=== PATIENT | female | born 1995 | race Caucasian/White ===

== ENCOUNTER 2023-06-03 17:18 | Outpatient (REF) | payer OTHER, SELFPAY | END 2023-06-03 17:19 | disposition home or self-care (01) | LOC: HO.LAB 17:18 | PROVIDERS: PCP Internal Medicine; Visit Provider Internal Medicine | DX: Z00.00 Encounter for general adult medical examination without abnormal findings (principal); E66.01 Morbid (severe) obesity due to excess calories; E78.2 Mixed hyperlipidemia | CPT/HCPCS: 36415; 80053; 80061; 84443; 85025 ==

== ENCOUNTER 2024-04-06 09:54 | Outpatient (REF) | payer OTHER, SELFPAY ==
[2024-04-07 12:34] LABS: Rubeola IgG (Measles) >300.00 AU/mL
[2024-04-07 13:04] LABS: Rubella IgG Antibody 3.12 Index
[2024-04-09 02:13] LABS: TS Negative Control Passed; TS Panel A 0; TS Panel B 0; TS Positive Control Passed; TSpotTB Negative (Negative)
== END 2024-04-06 09:55 | disposition home or self-care (01) ==
LOC: HO.LAB 09:54
PROVIDERS: PCP Internal Medicine; Visit Provider Internal Medicine
DX: E66.01 Morbid (severe) obesity due to excess calories (principal); E78.2 Mixed hyperlipidemia; Z11.1 Encounter for screening for respiratory tuberculosis; Z28.39 Other underimmunization status
CPT/HCPCS: 36415; 86481; 86735; 86762; 86765; 86787

== ENCOUNTER 2025-01-04 10:21 | Outpatient (REF) | payer OTHER, SELFPAY ==
[2025-01-04 10:55] LABS: Estimated Average Glucose 105 mg/dL; Hemoglobin A1C 114.4603 umol/L; Hemoglobin A1c % 5.3 % (<6.0); Total Hemoglobin (HGBA1C) 3364.6309 umol/L
--- OUTSIDE RECORDS SUMMARY | 2025-01-04 11:28 | XMS_ITS | Encounter Summary ---
Author Organization [facility] Address [address] [place] [address] Phone Care Team Providers Care Software Engineering Specialist Name Role Phone Carole Carpio MD Primary Care Provider [phone] Encounter Details Date Type Department Care Team ([facility] st Contact Info) Description 07/31/2012 Documentation [facility] [place] Family Medicine [address] [place] [address] Family Medicine, Physician [address] [place], [place] [phone] Social History Tobacco Use Types Packs/Day Years Used Date Smoking Tobacco: Never Assessed Comments Unknown Sex and Gender Information Value Date Recorded Sex Assigned at Not on file Legal Sex Female 4:35 PM EDT Gender Identity Not on file Sexual Orientation Not on file documented as of this encounter Plan of Treatment Not on file documented as of this encounter Visit Diagnoses Not on filedocumented in this encounter Care Teams Software Engineering Specialist Relationship Specialty Start Date End Date Carole Carpio MD [address] [place] [place] [address] PCP - General 04/04/17 12/04/22 documented as of this encounter
--- OUTSIDE RECORDS SUMMARY | 2025-01-04 11:28 | XMS_ITS | Encounter Summary ---
Author Organization [facility] Address [address] [place] [address] Phone Care Team Providers Care Service Worker Name Role Phone Carole Carpio MD Primary Care Provider [phone] Encounter Details Date Type Department Care Team (Late st Contact Info) Description 10/03/2011 Documentation [facility] [place] Family Medicine [address] [place] [address] Family Medicine, Physician [address] [place], [place] [phone] Social History Tobacco Use Types Packs/Day Years [...] on filedocumented in this encounter Care Teams Service Worker Relationship Specialty Start Date End Date Carole Carpio MD [address] [place] [place] [address] PCP - General 04/04/17 12/04/22 documented as of this encounter
--- OUTSIDE RECORDS SUMMARY | 2025-01-04 11:28 | XMS_ITS ---
Author Organization [facility] Address [address] [place] [phone] Care Team Providers Care Clinic Office Assistant Name Role Phone WILLIAN PACK Unavailable [phone] REASON FOR VISIT Menses concerns Social History Sex Assigned At : Social History Observation Description Sex Assigned At Female Encounters Encounter Location Date Provider Diagnosis [address] [phone] WILLIAN PAKC Plan Of Treatment No Information Progress Notes * Skylar LIZDOB:1995 ( 29 yo F)Acc No.[id number]:11/05/2024 Progress Notes Patient:?Skylar LIZ Provider:YA PACK :1995???Age:29 Y???Sex:Female D ate:11/05/2024 Address:[address] [place], [place] [id number] Subjective: * Chief Complaints: * ???1. Menses concerns. * Medical History:? Objective: * Vitals:? Assessment: Plan: * Treatment: * Billing Information: * Visit Code:? * Procedure Codes:? * Electronic signature of DANIELLA PACK CNM on 01/04/2025 at 11:28 AM EDT Sign off status: Pending * Provider:YA PACK Date:?11/05/2024 Generated for Megan quezada/[place]/eTransmitting on:?01/04/2025 11:28 AM EDT
--- OUTSIDE RECORDS SUMMARY | 2025-01-04 11:28 | XMS_ITS | Clinical Summary ---
Author Organization [facility] Address [address] [place] [address] Phone Care Team Providers Care Certified Wellness Program Coordinator Name Role Phone Unavailable Primary Care Provider Unavailabl e Immunizations Immunization Administration Dates Next Due DTP 04/24/1998, 5,1993, 993,1993 H1N1 07/10/2009 HPV, Quadrivalent 12/19/2009,09/12/2009,07/10/20 09 Hep B, ped/adol 1993,1993,1993 Hib (PRP-T) 06/24/1994, 4,1993, 993 IPV 04/24/1998, 4,1993, 993 Influenza Split 10/31/2010 MMR 04/24/1997,06/24/1994 Meningococcal Conj (Menactra) MCV4P 07/10/2009 Tdap 07/10/2009 Varicella 07/10/2009,01/08/1999 Social History Tobacco Use Types Packs/Day Years Used Date Smoking Tobacco: Never Assessed Comments Unknown Sex and Gender Information Value Date Recorded Sex Assigned at Not on file Legal Sex Female 4:35 PM EDT Gender Identity Not on file Sexual Orientation Not on file Last Filed Vital Signs Vital Sign Reading Time Taken Comments Blood Pressure 108/70 10/31/2010 12:00 AM EST Pulse - - Temperature - - Respiratory Rate - - Oxygen Saturation - - Inhaled Oxygen Concentration - - Weight 7.711 kg (17 lb) 01/31/2011 12:00 AM EDT Height 157.5 cm (5' 2 ) 10/31/2010 12:00 AM EST Body Mass Index - - Plan of Treatment Health Maintenance Due Date Last Done Comments DTaP,Tdap,and Td Vaccines (7 - Td or Tdap) 07/10/2019 07/10/2009, 04/24/1998, 12/22/1994, Additional history exists Influenza Vaccines (#1) 2024 10/31/2010 COVID-19 Vaccine ( season) 2024 Hepatitis B Vaccines Completed 1995, 1995, 1993 HIB Vaccines Completed 06/24/1994, 10/25, 1993, Additional history exists MMR Vaccines Completed 04/24/1997, 06/24/1994 IPV Vaccines Completed 04/24/1998, 10/25, 1993, Additional history exists Meningococcal Vaccine Completed 07/10/2009 Varicella Vaccines Completed 07/10/2009, 01/08/1999 HPV Vaccines Completed 12/19/2009, 08/25, 07/10/2009 Hepatitis A Vaccines Aged Out No long er eligible based on patient's age to complete this topic Men B Vaccine Aged Out No longer elig ible based on patient's age to complete this topic Pneumococcal Vaccine Aged Out No long er eligible based on patient's age to complete this topic Procedures * Due to [place] [employer] law, this organization might not be sharing sensitive test results. Procedure Name Priority Date/Time Associated Diagnosis Comments CHLAMYDIA AND GONORRHEA, AMPLIFIED Routine 02/01/2011 1:45 PM EDT from Last 3 Months or Most Recently Relevant to Health Maintenance Results * Due to [place] [employer] law, this organization might not be sharing sensitive test results. * Chlamydia and Gonorrhoea, Amplified (02/01/2011 1:45 PM EDT) Pathologist [facility] URINE GC AMP PROBE NEGATIVE [facility] Comment: NO NEISSERIA GONORRHOEAE RNA DETECTED IN THIS PATIENT'S SAMPLE. ? (REFERENCE RANGE/NORMAL VALUE: NOT DETECTED) ? NOTE: THIS TEST USES LABORATORY CLERK MEDIATED AMPLIFICATION METHOD TO DETECT rRNA FROM C.TRACHOMATIS AND N.GONORRHOEAE. A NEGATIVE RESULT DOES NOT PRECLUDE INFECTION WITH C.TRACHOMATIS OR N.GONORRHOEAE BECAUSE RESULTS ARE DEPENDENT ON ADEQUATE SPECIMEN COLLECTION, ABSENCE OF INHIBITORS, AND SUFFICIENT rRNA TO BE DETECTED. THE APTIMA COMBO2 ASSAY IS NOT INTENDED FOR THE EVALUATION OF SUSPECTED SEXUAL ABUSE OR FOR OTHER MEDICO LEGAL INDICATIONS. IS TRUE FOR ALL NON CULTURE METHODS, A POSITIVE SPECIMEN OBTAINED FROM A PATIENT AFTER THERAPEUTIC TREATMENT CANNOT BE INTERPRETED INDICATING THE PRESENCE OF VIABLE C.TRACHOMATIS OR N.GONORRHOEAE. THERAPEUTIC FAILURE OR SUCCESS CANNOT BE DETERMINED WITH THE APTIMA COMBO2 ASSAY SINCE NUCLEIC ACID MAY PERSIST FOLLOWING APPROPRIATE ANTIMICROBIAL THERAPY. A NEGATIVE URINE RESULT FOR A PATIENT WHO IS CLINICALLY SUSPECTED OF HAVING A CHLAMYDIAL OR GONOCOCCAL INFECTION DOES NOT RULE OUT THE PRESENCE OF C.TRACHOMATIS OR N.GONORRHOEAE IN THE UROGENITAL TRACT. TESTING OF AN ENDOCERVICAL(FEMALE) OR URETHRAL(MALE) SPECIMEN IS RECOMMENDED IF THERE IS HIGH CLINICAL SUSPICION OF INFECTION. PRESERVCYT LIQUID PAP AND URINE SAMPLING ARE NOT DESIGNED TO REPLACE CERVICAL EXAMS AND ENDOCERVICAL SAMPLES FOR DIAGNOSIS OF FEMALE UROGENITAL INFECTIONS. PATIENTS MAY HAVE CERVICITIS, URETHRITIS, URINARY TRACT INFECTIONS, OR VAGINAL INFECTIONS DUE TO OTHER CAUSES OR CONCURRENT INFECTIONS WITH OTHER AGENTS. URINE CHLAMYDIA AMP PROBE NEGATIVE [facility] Comment: NO CHLAMYDIA TRACHOMATIS RNA DETECTED IN THIS PATIENT'S SAMPLE. ? (REFERENCE RANGE/NORMAL VALUE: NOT DETECTED) 02/01/2011 1:45 PM EDT Narrative [facility] - 02/01/2011 1:45 PM EDT URINE CHLAMYDIA GC AMP PROBE us [facility] N[facility] NP LAB MICROBIOLOGY - GENERA L ORDERABLES Final Result [facility] [address] [place] [address], [place] from Last 3 Months or Most Recently Relevant to Health Maintenance
--- OUTSIDE RECORDS SUMMARY | 2025-01-04 11:28 | XMS_ITS | Patient Health Record ---
Author Organization [facility] Address [address] [place] [phone] Care Team Providers Care Office Equipment Technician Name Role Phone MARGIE VILLALOBOS Unavailable [phone] WILLIAN PACK Unavailable [phone] Millie Washington Unavailable [phone] Allergies No Known Allergies Results Component Value Reference Range Notes APTIMA COMBO 2 CT/NG, Urine Reviewed date:01/22/2024 03:26:30 PM Interpretation:neg/negati Performing Lab:[facility], [address] [facility], [place], [address] Gildardo Lyon DO Notes/Report: GONORRHEA, AMPLIFIED NEGATIVE NEGATIVE CHLAMYDIA, AMPLIFIED NEGATIVE NEGATIVE DNA Test Results SEX: F : 1995 AGE: 28 [id number] CLINIC ID: [id number] SS: PHYSICIAN: MILLIE WASHINGTON [facility] COLLECTED BY: [id number] Specimen Source: Urine Specimen Type: Urine, Iveth PCR Medium Neisseria gonorrhoeae: NEGATIVE Normal Value: Negative Chlamydia trachomatis: NEGATIVE Normal Value: Negative Reason For Referral No Information Medications Medication SIG (Take, Route, Frequency, Duration) Notes Start Date End Date Status NuvaRing 0.12-0.015 MG/24HR 1 ring Vaginal _insert for three weeks, then ring free for 1 week for 84 days 07/04/2023 Active Social History Sex Assigned At : Social History Observation Description Sex Assigned At Female Problems Problem Type SNOMED Code ICD Code Onset Dates Problem Status W/U Status Risk Notes Problem Dyspareunia (02163417) Unspecified dyspareunia (N94.10) Active confirmed Problem Dysmenorrhea (650164941) Dysmenorrhea (N94.6) Active confirmed Vital Signs Blood pressure diastolic 78 mm Hg 12/03/2024 Height 62 in 12/03/2024 Blood pressure systolic 122 mm Hg 12/03/2024 Weight 216.9 lbs 12/03/2024 BMI 39.67 kg/m2 12/03/2024 Encounters Encounter Location Date Provider Diagnosis [address] [phone] 01/12/2024 Millie Washington Encounter for screening for infections with a predominantly sexual mode of transmission Z11.3 ; Counseling, unspecified Z71.9 and Encounter for surveillance of vaginal ring hormonal contraceptive device Z30.[address] [id number] 12/03/2024 WILLIAN PACK Encounter for surveillance of contraceptives, unspecified Z30.40 Assessments Encounter Date Diagnosis (ICD Code) Assessment Notes Treatment Notes Treatment Clinical Notes Section Notes 01/12/2024 Encounter for screening for infections with a predominantly sexual mode of transmission (ICD-10 - Z11.3) Reviewed STI screening recommendations and available testing through [facility]. Testing ordered as noted per patient risks and preference. Encouraged safe sex practices. Advised to call for evaluation if any symptoms arise. Reviewed method of communicating results to patient. Spent 20 minutes doing the following: Chart Prep Obtaining/rev iewing history Counseling/Co ordination of Care Documenting the visit Educating the patient Ordering medication/te st/procedures 12/03/2024 Encounter for surveillance of contraceptives, unspecified (ICD-10 - Z30.40) Ok and normal to have amenorrhea with NR as long as urine PT in negative. No CI's to CHCs or to continue with the NR. Reminded of ACHES. Year supply sent. Discussed tubal ligation. Encouraged to call [facility] office to schedule a consult visit. Spent 18 minutes doing the following: Chart Prep Obtaining/rev iewing history Performing medically necessary exam Counseling/Co ordination of Care Documenting the visit Educating the patient Ordering medication/te st/procedures Established Patient: [id number] 10 Minutes 01/12/2024 Encounter for surveillance of vaginal ring hormonal contraceptive device (ICD-10 - Z30.44) Annual 3 mos ago. Updated medical hx, vitals. No contraindications to continuation of nuvaring. Rx continued with refills through 09/2024. Spent 20 minutes doing the following: Chart Prep Obtaining/rev iewing history Counseling/Co ordination of Care Documenting the visit Educating the patient Ordering medication/te st/procedures 01/12/2024 Counseling, unspecified (ICD-10 - Z71.9) Spent 20 minutes doing the following: Chart Prep Obtaining/rev iewing history Counseling/Co ordination of Care Documenting the visit Educating the patient Ordering medication/te st/procedures Plan Of Treatment No Information Insurance Providers Payer Name Payer Address Payer Phone Subscriber Number Group Number Insured Name Patient Relationship to Insured Coverage Start Date Coverage End Date [place] ATT CLAIMS [address] [place] [id number] Skylar Liz Self - patient is the insured Medications Administered Medication Instructions Date of Administration Dosage Notes Rocephin / Ceftriaxone 10/15/2023 500 mg Medical (General) History Medical History History ICD Code GC 10/18 Abnormal Pap smear Surgical History Surgery Date(Month/Year) Hospitalization History Reason Date(Month/Year) childbirth
--- OUTSIDE RECORDS SUMMARY | 2025-01-04 11:29 | XMS_ITS | Clinical Summary ---
Author Organization [facility] Address [address] [place] [address] Care Team Providers Care Hiv Prevention Specialist Name Role Phone Sara Parra MD Primary Care Provider Surgical History Surgery Date Site/Laterality Comments OTHER SURGICAL HISTORY PROCEDURE: DENIES PREVIOUS SURGERY Medical History Medical History Date Comments Obese 02/18/2019 DX:Obese; COMMEN T: bmi 40.2 Family History Medical History Relation Name Comments No Known Problems Father No Known Problems Maternal Grandfather No Known Problems Maternal Grandmother No Known Problems Mother No Known Problems Paternal Grandfather No Known Problems Paternal Grandmother Other: Other Sister x 2 Relation Name Status Comments Father Alive Maternal Grandfather Alive Maternal Grandmother Alive Mother Alive Paternal Grandfather Alive Paternal Grandmother Alive Sister Alive Social History Tobacco Use Types Packs/Day Years Used Date Smoking Tobacco: Never Smokeless Tobacco: Never Alcohol Use Standard Drinks/Week Comments No 0 (1 standard drink = 0.6 oz pur e alcohol) Comments Unknown Sex and Gender Information Value Date Recorded Sex Assigned at Not on file Legal Sex Female 10:48 PM EST Gender Identity Not on file Sexual Orientation Not on file Obstetrics History Plan of Treatment Health Maintenance Due Date Last Done Comments Hepatitis B Vaccines (1 of 3 - 19+ 3-dose series) 02/12/2012 Cervical Cancer Screening: P ap Smear 03/25/2022 03/25/2019 COVID-19 Vaccine ( - 2023-2 5 season) 2024 Influenza Vaccine (Season Ended) 2025 07/06/20 DTaP,Tdap,and Td Vaccines (2 - Td or Tdap) 06/02/2029 06/02/2019 HIB Vaccines Aged Out No longer eligi ble based on patient's age to complete this topic HPV Vaccines Aged Out No longer eligi ble based on patient's age to complete this topic Hepatitis A Vaccines Aged Out No long er eligible based on patient's age to complete this topic IPV Vaccines Aged Out No longer eligi ble based on patient's age to complete this topic MMR Vaccines Aged Out No longer eligi ble based on patient's age to complete this topic Meningococcal ACWY Vaccine Aged Out N o longer eligible based on patient's age to complete this topic Meningococcal B Vaccine Aged Out No l onger eligible based on patient's age to complete this topic Pneumococcal Vaccine: Pediat rics (0 to 5 Years) and At-Risk Patients (6 to 64 Years) Aged Out No longer eligi ble based on patient's age to complete this topic RSV Immunization Patients Un cordell 20 months Aged Out No longer eligible b ased on patient's age to complete this topic Varicella Vaccines Aged Out No longer eligible based on patient's age to complete this topic Procedures Procedure Name Priority Date/Time Associated Diagnosis Comments PAP SMEAR Routine 03/25/2019 from Last 3 Months or Most Recently Relevant to Health Maintenance Results * Pap smear (03/25/2019) 03/25/2019 Narrative HISTORICAL TESTING LAB RESULTING AGENCY - 03/30/2019 11:50 AM EDT [id number] THINPREP PAP, IMAGED: NEGATIVE FOR SQUAMOUS INTRAEPITHELIAL LESION AND MALIGNANCY . SIMONA MTZ(ASCP) (CASE ELECTRONICALLY SIGNED 03 30 2019) ADEQUACY: SATISFACTORY ENDOCERVICAL/TRANSFORMATION ZONE COMPONENT PRESENT. SOURCE: THINPREP PAP HPV IF ASCUS, CERVICAL, IMAGED CLINICAL INFORMATION: HPV IF DIAGNOSIS OF ASCUS. , LMP 12/07/18, Z12.4 Yary [facility] LAB CYTOLOGY ORDERABLES Final Result HISTORICAL TESTING LAB RESULTING AGENCY from Last 3 Months or Most Recently Relevant to Health Maintenance Care Teams Hiv Prevention Specialist Relationship Specialty Start Date End Date Sara Parra MD [facility] [address] [place] [place] PCP - General Internal Medicine 08/13/19
--- OUTSIDE RECORDS SUMMARY | 2025-01-04 11:29 | XMS_ITS ---
Author Organization [facility] Address [address] [place] [phone] Care Team Providers Care It Engineer Name Role Phone WILLIAN PACK Unavailable [phone] REASON FOR VISIT Annual Exam Social History Sex Assigned At : Social History Observation Description Sex Assigned At Female Encounters Encounter Location Date Provider Diagnosis [facility] [address] [place], [place] [phone] 04/2025 WILLIAN PACK Plan Of Treatment No Information Progress Notes * Skylar LIZDOB:1995 ( 29 yo F)Acc No.[id number]:12/31/2024 Progress Notes Patient:?Skylar LIZ Provider:YA PACK :1995???Age:29 Y???Sex:Female D ate:12/31/2024 Address:[address] [place], [place] [id number] Subjective: * Chief Complaints: * ???1. Annual Exam. * Medical History:? Objective: * Vitals:? Assessment: Plan: * Treatment: * Billing Information: * Visit Code:? * Procedure Codes:? * Electronic signature of DANIELLA PACK CNM on 01/04/2025 at 11:28 AM EDT Sign off status: Pending * Provider:YA PACK Date:?12/31/2024 Generated for Megan quezada/[place]/eTransmitting on:?01/04/2025 11:28 AM EDT
[2025-01-04 12:04] LABS: Alanine Aminotransferase 21 U/L (0-31); Anion Gap 11 (12-20); Aspartate Amino Transferase 26 U/L (5-31); Bilirubin Total 0.3 mg/dL (0.0-1.0); Blood Urea Nitrogen 12 mg/dL (9-16); Calcium 9.1 mg/dL (8.4-10.2); Carbon Dioxide 24 mmol/L (22-29); Chloride 109 mmol/L (96-108); Cholesterol 193 mg/dL (<200); Estimated Glomerular Filt Rate > 60; Glucose Random 90 mg/dL (60-115); HDL Cholesterol 49 mg/dL (>40); LDL Cholesterol Calculated 115 mg/dL (<100); Potassium 4.1 mmol/L (3.3-5.1); Sodium 140 mmol/L (135-145); Thyroid Stimulating Hormone 1.19 uIU/mL (0.32-4.0); Total Protein 7.7 g/dL (6.5-8.0); Triglycerides 145 mg/dL (<150)
[2025-01-04 12:38] LABS: Alkaline Phosphatase 52 U/L (39-117)
== END 2025-01-04 10:22 | disposition home or self-care (01) ==
LOC: HO.LAB 10:21
PROVIDERS: PCP Internal Medicine; Visit Provider Internal Medicine
DX: Z00.00 Encounter for general adult medical examination without abnormal findings (principal); E66.01 Morbid (severe) obesity due to excess calories; E78.2 Mixed hyperlipidemia; G47.00 Insomnia, unspecified; R53.83 Other fatigue; Z11.1 Encounter for screening for respiratory tuberculosis
CPT/HCPCS: 36415; 80053; 80061; 83036; 84443